=== PATIENT | female | born 1955 | race Caucasian/White ===

== ENCOUNTER 2023-03-25 08:34 | Outpatient (AMB) | payer MEDICARE, OTHER, SELFPAY ==
--- NOTE | 2023-03-25 09:23 | A.OFFVIS_ITS ---
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 States pain started a couple months ago. She states that her pain moves down her right leg. Pain is off and on, when she stepped out her car this morning she felt a sharp pain in her knee. Allergies meperidine [Demerol] Allergy (Unknown, Verified 03/25/23 09:27) Nausea From DEMEROL Allergy (Unknown, Uncoded 11/30/19 16:45) NAUSEA & VOMITING Medication List - Last Reconciled 03/25/23 by Camila Acosta MD ascorbate calcium (vitamin C) 500 mg PO BID aspirin 81 mg PO DAILY cholecalciferol (vitamin D3) 25 mcg PO DAILY ginkgo biloba 120 mg PO DAILY zmtme-ghdza-4-zbk-mhp-mbfspy 477-07-12-50 mg caps PO magnesium citrate,mag oxide mg PO melatonin 3 mg PO BEDTIME PRN methyltetrahydrofolate glucos mcg DFE PO HPI HPI Comments History of Present Illness Details Around June 2022, she moved/carried a 40 lb AC unit by herself. Had back pain mildy at first for a week. Didn't think it was a big deal at that time. Then had a scheduled hysterectomy end of June 2022. Few days after surgery, had short lived shooting pain to left leg, used salon pas, and that went away. After, continued intermittent back pain. She was also on tamoxifen for breast CA, started noting pain on legs and some weakness. Even other bones like elbows were hurting. Came off Tamoxifen, bones did feel better after. But still continued with lower back pain, now going down to right lateral hip/thigh, sharp pain on right lateral knee, sometimes down to foot. Worse with sitting, better when she moves. Worse when laying down, on either side. No bladder/bowel incontinence. No new numbness; tingling for years on feet, been seen by Neurologist. EMG 2 years ago normal. No weakness per se, although feels weak when there is pain. Before this incident, would get back pain rarely, no severe lumbar issues. Maybe some back strain incidents which resolved on their own. November 2021 had some lower back pain; saw PCP, thought due to weak core. Had PT for core exercises which helped. Has not seen a back specialist before. Treatment done so far: tylenol, salon pas, maricruz hot (lidocaine patch gave her headache) Current pain score only 1/10. Intermittent shooting to the right knee. [facility] Medical History (Updated 03/25/23 @ 10:44 by Camila Acosta MD) Spondylolisthesis, lumbar region Social History (Updated 03/25/23 @ 09:28 by Huang Heredia) Alcohol intake: never Patient Tobacco Use Status: Never used Tobacco Review of Systems Const All systems reviewed & are unremarkable except as noted in HPI and below Physical Exam Vital Signs: BMI result Body Mass Index 25.6 Constitutional: Patient appears to be in no acute distress, well nourished and well developed. Patient was appropriately conversant and oriented. Good historian. MSK: [No] specific abnormalities found on inspection of the spine and all extremities. [No pain with palpation over the lumbar area]. Lumbar ROM was [full]. [Bilateral hip, knee and ankle ROM WNL]. No ligamentous laxity or crepitance. [No increased effusion]. Straight-leg raising test [negative]. FABERE test [negative]. [Gillet test is negative]. [Khang test is negative]. [Piriformis test is negative]. [Scour test is negative]. Strength is [5/5 in all muscle groups tested]. [No increased tone noted]. Neurological: Neurologic examination of the upper and lower extremities was nonfocal with intact sensation, muscle stretch reflexes and without focal motor deficits [ ]. Yusuf?s [negative bilaterally]. Babinski was [down going bilaterally]. Clonus was [negative]. Gait is [non-]antalgic without loss of balance. Results Reviewed Results Reviewed: I independently reviewed the results of the following: Lumbar x-rays done today and office-showed 25% listhesis L4-5, disc space narrowing L4-5 and L5-S1 July 2022 bone density - osteopenia July [address] scan - grade 1 anterior listhesis L4-5 I reviewed records from the following: PCP Assessment & Plan Assessment & Plan (1) Spondylolisthesis, lumbar region: Code(s): M43.16 - Spondylolisthesis, lumbar region (2) Lumbar radiculitis: Code(s): M54.16 - Radiculopathy, lumbar region Plan We looked at lumbar x-ray images together, discussed presence of grade 1 25% spondylolisthesis at L4-5. This appears to be chronic and not new given that it was seen in an abdominal CT scan July 2021. However I do think she is having new right-sided radiculitis, L4-5 distribution. She is severely claustrophobic. Although she said she may try an open MRI if needed. Given she has very low level pain right now and no neurologic findings on exam, I think we can wait on an open MRI for now. Sending her back to x-rays to do flexion and extension views, make sure there is no instability. Again she says her pain is manageable and we can defer any oral prednisone or gabapentin. These medications were considered and we can start them if pain becomes more severe. Discussed red flags to watch out for. She can do exercises at home including walking and gentle chair core exercises. Advised against any extreme bending forward or backwards, and no squatting. Assessment and plan discussed with patient, and patient was agreeable. All questions were answered thoroughly. Follow-up 2 months. Call if there is any worsening of symptoms. Camila Acosta MD, MEGAN Board Certified, [place] Board [employer] Medicine and Rehabilitation (ABPMR) Board Certified, [place] Board [employer] Electrodiagnostic Medicine (ABEM) Coding Level of Care Code New Pt Level 4 (83344) Diagnoses Spondylolisthesis, lumbar region M43.16 Lumbar radiculitis M54.16
[2023-03-25 09:28] VITALS: BMI 25.6
== END 2023-03-25 10:03 | disposition home or self-care (01) ==
PROVIDERS: PCP Internal Medicine; Visit Provider Physical Medicine & Rehabilitation
DX: M43.16 Spondylolisthesis, lumbar region (principal); M54.16 Radiculopathy, lumbar region
CPT/HCPCS: 99204

== ENCOUNTER 2023-03-25 12:27 | Outpatient (REF) | payer MEDICARE, OTHER, SELFPAY ==
--- NOTE | ~2023-03-25 | XR_ITS ---
EXAMINATION: XR LUMBOSACRAL SPINE WITH OBLIQUES CLINICAL INFORMATION: Dorsalis the COMPARISON: CT of abdomen and pelvis from 08/02/2021 TECHNIQUE: 5 views of the lumbar spine, including lateral views during flexion and extension. FINDINGS: Mild dextrocurvature of the lumbar spine. The vertebral body heights are maintained. No compression fractures. At L3-L4, there is mild posterior disc space narrowing. At L4-L5, there is severe facet arthropathy, moderate loss of disc space and grade 2 anterolisthesis of L4 on L5. The anterolisthesis does not significant change on flexion or extension. At L5-S1, there is wydvosvm-hm-virasc facet arthropathy, severe loss of the disc height, endplate sclerosis and osteophytosis. Alignment is maintained at L5-S1. Mild hyperlordosis of the degenerated lumbar spine. There is abutment of spinous processes at L3-L4 and L4-L5. Sacrum and sacroiliac joints are unremarkable. XR/XR lumbar spine 6V w bending IMPRESSION: * No evidence of lumbar compression fracture. * Chronic facet osteoarthritis and disc degenerative change at L4-L5 and L5-S1. * Grade 2 anterolisthesis at L4-L5 does not significantly change on flexion or extension maneuvers.
== END 2023-03-25 12:28 | disposition home or self-care (01) ==
LOC: HO.HOSX 12:27
PROVIDERS: Visit Provider Physical Medicine & Rehabilitation
DX: M43.16 Spondylolisthesis, lumbar region (principal); M54.16 Radiculopathy, lumbar region
CPT/HCPCS: 72100; 72114

== ENCOUNTER 2023-05-27 08:54 | Outpatient (AMB) | payer MEDICARE, OTHER, SELFPAY ==
--- NOTE | 2023-05-27 08:58 | A.OFFVIS_ITS ---
Intake Vital Signs 05/27/23 09:00 Height 5 ft 2 in Weight 140 lb BMI 25.6 Intake Visit Reasons: OV - Lumbar radiculitis Intake Note: Marcela is a 67 year old female who presents today for a follow up/ MRI review of her Lumbar radiculitis. Patient reports she didn't having any pain until this morning. Currently is having pain today that is going down her left leg and sometimes it goes down her right leg. Allergies meperidine [Demerol] Allergy (Unknown, Verified 05/27/23 09:00) Nausea From DEMEROL Allergy (Unknown, Uncoded 11/30/19 16:45) NAUSEA & VOMITING Medication List - Last Reconciled 05/27/23 by Camila Acosta MD ascorbate calcium (vitamin C) 500 mg PO BID aspirin 81 mg PO DAILY cholecalciferol (vitamin D3) 25 mcg PO DAILY ginkgo biloba 120 mg PO DAILY cbssg-vesvr-8-ygv-yxu-jabnug 612-35-84-50 mg caps PO lorazepam 0.5 mg PO DAILY PRN magnesium citrate,mag oxide mg PO melatonin 3 mg PO BEDTIME PRN methyltetrahydrofolate glucos mcg DFE PO HPI HPI Comments History of Present Illness Details Around June 2022, she moved/carried a 40 lb AC unit by herself. Had back pain mildy at first for a week. Didn't think it was a big deal at that time. Then had a scheduled hysterectomy end of June 2022. Few days after surgery, had short lived shooting pain to left leg, used salon pas, and that went away. After, continued intermittent back pain. She was also on tamoxifen for breast CA, started noting pain on legs and some weakness. Even other bones like elbows were hurting. Came off Tamoxifen, bones did feel better after. But still continued with lower back pain, now going down to right lateral hip/thigh, sharp pain on right lateral knee, sometimes down to foot. Worse with sitting, better when she moves. Worse when laying down, on either side. No bladder/bowel incontinence. No new numbness; tingling for years on feet, been seen by Neurologist. EMG 2 years ago normal. No weakness per se, although feels weak when there is pain. Before this incident, would get back pain rarely, no severe lumbar issues. Maybe some back strain incidents which resolved on their own. November 2021 had some lower back pain; saw PCP, thought due to weak core. Had PT for core exercises which helped. Has not seen a back specialist before. Treatment done so far: tylenol, salon pas, maricruz araujo (lidocaine patch gave her headache) Current pain score only 1/10. Intermittent shooting to the right knee. On and off pain since I saw her. Noticed when she's in bed. Usually by afternoon, lower back hurts. Pain switches right or left. Applies maricruz hot. Last few days, been unusually painfree since she changed shoes/orthotics. But this morning, felt pain more and going to left knee, worse with walking. Now better with sitting. [facility] Medical History (Updated 05/27/23 @ 12:59 by Camila Acosta MD) Lumbar spinal stenosis Spondylolisthesis, lumbar region Social History (Updated 03/25/23 @ 09:28 by Huang Heredia) Alcohol intake: never Patient Tobacco Use Status: Never used Tobacco Physical Exam Vital Signs: BMI result Body Mass Index 25.6 Constitutional: Patient appears to be in no acute distress, well nourished and well developed. Patient was appropriately conversant and oriented. Good historian. MSK: No specific abnormalities found on inspection of the spine and all extremities. No pain with palpation over the lumbar area. Lumbar ROM was full. Bilateral hip, knee and ankle ROM WNL. No ligamentous laxity or crepitance. No increased effusion. Straight-leg raising test negative. FABERE test positive groin pain. Gillet test is negative. Strength is 5/5 in all muscle groups tested. No increased tone noted. Neurological: Neurologic examination of the upper and lower extremities was nonfocal with intact sensation, muscle stretch reflexes and without focal motor deficits . Yusuf?s negative bilaterally. Babinski was down going bilaterally. Clonus was negative. Gait is non-antalgic without loss of balance. Results Reviewed Results Reviewed: Reviewed images of open MRI done at [facility]. Moderate spinal stenosis L4-5 and foraminal stenosis at L4-5 and L5-S1. Mild spondylolisthesis L4-5. Assessment & Plan Assessment & Plan (1) Groin pain: Code(s): R10.30 - Lower abdominal pain, unspecified Qualifiers: Laterality: left Qualified Code(s): R10.32 - Left lower quadrant pain (2) Lumbar spinal stenosis: Code(s): M48.061 - Spinal stenosis, lumbar region without neurogenic claudication Qualifiers: Neurogenic claudication status: without neurogenic claudication Qualified Code(s): M48.061 - Spinal stenosis, lumbar region without neurogenic claudication (3) Lumbar radiculitis: Code(s): M54.16 - Radiculopathy, lumbar region (4) Spondylolisthesis, lumbar region: Code(s): M43.16 - Spondylolisthesis, lumbar region Plan Chronic back pain which we suspect is coming from lumbar spondylolisthesis, spinal stenosis. She is able to manage with pain. She does not show any neurologic deficits. We decided to refer to physical therapy. We discussed safe exercises to do at home and precautions against heavy lifting, precautions against extreme flexion and extension. We talked about appropriate diet at her age. Sending her for hip x-rays to rule out DJD due to complaints of groin pain. Per patient, reserving injections as last resort if not improved with PT or if pain becomes more persistent. Assessment and plan discussed with patient, and patient was agreeable. All questions were answered thoroughly. Camila Acosta MD, MEGAN Board Certified, [place] Board of [employer] Medicine and Rehabilitation (ABPMR) Board Certified, [place] Board [employer] Electrodiagnostic Medicine (ABEM) Orders: Orders XR hips FARHANA min 3V Today R10.30 - Lower abdominal pain, unspecified PT Evaluation and Treatment Today M43.16 - Spondylolisthesis, lumbar region, M48.061 - Spinal stenosis, lumbar region without neurogenic claudication, M54.16 - Radiculopathy, lumbar region, R10.30 - Lower abdominal pain, unspecified Coding Level of Care Code Est Pt Level 4 (72759) Diagnoses Left inguinal pain R10.32 Laterality: left Spinal stenosis of lumbar region without neurogenic claudication M48.061 Neurogenic claudication status: without neurogenic claudication Lumbar radiculitis M54.16 Spondylolisthesis, lumbar region M43.16
[2023-05-27 09:00] VITALS: BMI 25.6
== END 2023-05-27 09:29 | disposition home or self-care (01) ==
PROVIDERS: PCP Internal Medicine; Visit Provider Physical Medicine & Rehabilitation
DX: R10.32 Left lower quadrant pain (principal); M48.061 Spinal stenosis, lumbar region without neurogenic claudication; M54.16 Radiculopathy, lumbar region; M43.16 Spondylolisthesis, lumbar region
CPT/HCPCS: 99214

== ENCOUNTER 2023-05-27 08:54 | Outpatient (REF) | payer MEDICARE, OTHER, SELFPAY ==
--- NOTE | ~2023-05-27 | XR_ITS ---
EXAMINATION: XR BILATERAL HIPS WITH AP PELVIS CLINICAL INFORMATION: Pain COMPARISON: None available. TECHNIQUE: 2 views of each hip FINDINGS: No acute visible fracture or dislocation. Degenerative arthropathy of the bilateral femoral acetabular joint. Degenerative changes of the lumbosacral spine. Joint space alignment otherwise maintained. Soft tissues unremarkable. Bowel gas is unremarkable. Pelvic phleboliths are noted. Soft tissues are unremarkable. XR/XR hips FARHANA min 3V IMPRESSION: 1. No acute visible fracture or dislocation. 2. Degenerative arthropathy of the bilateral femoral acetabular joint.
== END 2023-05-27 08:55 | disposition home or self-care (01) ==
LOC: HO.HOSX 08:54
PROVIDERS: PCP Internal Medicine; Visit Provider Physical Medicine & Rehabilitation
DX: R10.32 Left lower quadrant pain (principal); M54.16 Radiculopathy, lumbar region; M48.061 Spinal stenosis, lumbar region without neurogenic claudication; M43.16 Spondylolisthesis, lumbar region
CPT/HCPCS: 73522; 99212

== ENCOUNTER 2024-03-02 09:12 | Outpatient (REF) | payer MEDICARE, OTHER, SELFPAY ==
--- OUTSIDE RECORDS SUMMARY | 2024-03-02 09:45 | XMS_ITS ---
Author Organization [facility] Address [address] [facility] [place] [address] Care Team Providers Care Elastic Assembler Name Role Phone Sergey Garrett [phone] ALLERGIES, ADVERSE REACTIONS, ALERTS Substance Code Code System Type Reaction Severity Status Start Date End Date house dust 036668 RxNorm Other allergy () 0 mold 648768 RxNorm Other allergy () 0 MEDICATIONS Medication Code Code System Start Date Stop Date Route Dosage Directions Fill Instructions famotidine RxNorm 10/08/2023 1 lorazepam RxNorm 12/08/2023 doxycycline hyclate RxNorm 12/13/2023 1 loratadine RxNorm 12/15/2023 1 neomycin/polymy nikolay B sulfate/dexamet hasone RxNorm 12/13/2023 1 PROBLEMS Problem Name Code Code System Start Date End Date Stat us Heartburn 16131839 [facility] Active Sleep disorder, unspecified 15209812 [facility] Active Tinnitus, unspecified ear 51212693 [facility] 01/09/2024 Active ENCOUNTERS Encounter Diagnosis Code Code System Date Stat us Tinnitus, unspecified ear 28519335 [facility] 01/09/2024 Active IMMUNIZATIONS * None VITAL SIGNS Code Code System Vitals Name Date Value and Un its 8462-4 [facility] Blood Pressure-Diastolic 01/09/2024 84 mmHg 8480-6 [facility] Blood Pressure-Systolic 01/09/2024 1 57 mmHg 8867-4 [facility] Heart Rate 01/09/2024 67 /min 9279-1 [facility] Respiratory Rate 01/09/2024 18 /min 8310-5 [facility] Body Temperature 01/09/2024 98.3 F 21265-2 [facility] Oxygen Saturation 01/09/2024 98 % SOCIAL [...]
== END 2024-03-02 09:13 | disposition home or self-care (01) ==
LOC: HO.HOSX 09:12
PROVIDERS: PCP Internal Medicine; Visit Provider Physical Medicine & Rehabilitation
DX: M54.2 Cervicalgia (principal); M79.18 Myalgia, other site; M47.812 Spondylosis without myelopathy or radiculopathy, cervical region
CPT/HCPCS: 72040; 99212

== ENCOUNTER 2024-03-02 09:12 | Outpatient (AMB) | payer MEDICARE, OTHER, SELFPAY ==
[2024-03-02 09:17] VITALS: BMI 25.6
--- NOTE | 2024-03-02 09:17 | MHC.OFFVIS ---
Vital Signs 03/02/24 09:17 Height 5 ft 2 in Weight 140 lb BMI 25.6 Intake Visit Reasons: new prob - neck pain down to between shoulders Intake Note: Marcela 68 yr old female presents today for a new problem visit for her neck pain. States her pain radiates down in between her shoulders at times. Pain started in December. No injury she can recall. Today her pain is better and feels like this could be muscular tension. States her neck cracks when she turns her neck to either side. Denies neck therapy or injections. She is also having lower back pain on and off. Hx of TMJ issues. Allergies meperidine [Demerol] Allergy (Unknown, Verified 03/02/24 09:25) Nausea From DEMEROL Allergy (Unknown, Uncoded 03/02/24 09:25) NAUSEA & VOMITING Medication List - Last Reconciled 03/02/24 by Camila Acosta MD ascorbate calcium (vitamin C) 500 mg PO BID aspirin 81 mg PO DAILY cholecalciferol (vitamin D3) 25 mcg PO DAILY ginkgo biloba 120 mg PO DAILY vcets-wsqjo-1-xel-pep-duthci 579-13-44-50 mg caps PO lorazepam 0.5 mg PO DAILY PRN magnesium citrate,mag oxide mg PO melatonin 3 mg PO BEDTIME PRN methyltetrahydrofolate glucos mcg DFE PO HPI Comments Details: Previously seen 05/27/2023 for back and hip pain. Patient says this improved with physical therapy. She is here today for different issue. Lateral neck pain, left worse than right, started November. Tends to tense in the trapezius. Tends to clench/bit down, following with dentist. Developed tinnitus also, saw ENT Dr. Bang. Thought maybe related to TMJ and BPPV. She was referred to PT for vertigo. Saw Dr. Chamberlain 02/21/2024. He ordered EMG lower extremities. She had gone to ER 01/16/24 for rapid HR. Ruled out cardiac. Chest xray showed incidentally cervical facet degeneration. She also mentions that symptoms may have started after a covid vaccine in November. That day her face and arm felt numb, but resolved the next day. For neck pain, she notes clicking with ROM. She admits that she's been stressed this year. Neck pain gets better if she relaxes. [facility] Medical History (Updated 03/02/24 @ 09:42 by Camila Acosta MD) Lumbar spinal stenosis Spondylolisthesis, lumbar region Social History (Updated 03/02/24 @ 09:25 by Rabia Devi [facility]) Alcohol intake: never Patient Tobacco Use Status: Never used Tobacco Current occupational status: retired Current occupation: right hand Physical Exam Vital Signs: BMI result Body Mass Index 25.6 Constitutional: Patient appears to be in no acute distress, well nourished and well developed. Patient was appropriately conversant and oriented. Good historian. MSK: Inspection reveals appropriate head and neck positioning. Tender on upper trapezius. Cervical ROM was full. Spurling's sign negative. Bilateral shoulder, elbow and wrist ROM WNL. No ligamentous laxity or crepitance. No increased effusion. Strength is 5/5 in all muscle groups tested. No increased tone noted. Neurological: Neurologic examination of the upper and lower extremities was nonfocal with intact sensation, muscle stretch reflexes and without focal motor deficits . Yusuf?s negative bilaterally. Gait is non-antalgic without loss of balance. Patient was able to perform heel walk and toe walk. Results Reviewed Results Reviewed: Reviewed notes from Dr. Chamberlain and a chest x-ray. Assessment & Plan Assessment & Plan (1) Myofascial pain: Code(s): M79.18 - Myalgia, other site Category: Medical (2) Cervical spondylosis: Code(s): M47.812 - Spondylosis without myelopathy or radiculopathy, cervical region Category: Medical Plan Suspect that neck pain is primarily myofascial. We do think she has cervical spondylosis, but no specific sign of radiculopathy or myelopathy. We agreed on sending her to physical therapy for neck pain and myofascial pain. She will do this after she finishes physical therapy for vestibular. We are doing a cervical x-ray for completion, to see baseline level of spondylosis. Encouraged to do home exercises for lower back pain. Assessment and plan discussed with patient, and patient was agreeable. All questions were answered thoroughly. Follow up 6 weeks. Camila Acosta MD, MEGAN Board Certified, [place] Board [employer] Medicine and Rehabilitation (ABPMR) Board Certified, [place] Board [employer] Electrodiagnostic Medicine (ABEM) Orders: Orders PT Evaluation and Treatment Today M47.812 - Spondylosis without myelopathy or radiculopathy, cervical region, M79.18 - Myalgia, other site XR cervical spine 3V Today M54.2 - Cervicalgia Coding Level of Care Code Est Pt Level 4 (38883) Diagnoses Myofascial pain M79.18 Cervical spondylosis M47.812
--- OUTSIDE RECORDS SUMMARY | 2024-03-02 09:19 | XMS_ITS ---
Author Organization [facility] Address [address] [place] [address] Care Team Providers Care Warranty Clerk Name Role Phone Sergey Garrett [phone] ALLERGIES, ADVERSE REACTIONS, ALERTS Substance Code Code System Type Reaction Severity Status Start Date End Date house dust 307303 RxNorm Other allergy () 0 mold 461976 RxNorm Other allergy () 0 MEDICATIONS Medication Code Code System Start Date Stop Date Route Dosage Directions Fill Instructions famotidine RxNorm 10/08/2023 1 lorazepam RxNorm 12/08/2023 doxycycline hyclate RxNorm 12/13/2023 1 loratadine RxNorm 12/15/2023 1 neomycin/polymy nikolay B sulfate/dexamet hasone RxNorm 12/13/2023 1 PROBLEMS Problem Name Code Code System Start Date End Date Stat us Heartburn 26139514 [facility] Active Sleep disorder, unspecified 81131749 [facility] Active Tinnitus, unspecified ear 61217289 [facility] 01/09/2024 Active ENCOUNTERS Encounter Diagnosis Code Code System Date Stat us Tinnitus, unspecified ear 98846409 [facility] 01/09/2024 Active IMMUNIZATIONS * None VITAL SIGNS Code Code System Vitals Name Date Value and Un its 8462-4 [facility] Blood Pressure-Diastolic 01/09/2024 84 mmHg 8480-6 [facility] Blood Pressure-Systolic 01/09/2024 1 57 mmHg 8867-4 [facility] Heart Rate 01/09/2024 67 /min 9279-1 [facility] Respiratory Rate 01/09/2024 18 /min 8310-5 [facility] Body Temperature 01/09/2024 98.3 F 35513-9 [facility] Oxygen Saturation 01/09/2024 98 % SOCIAL HISTORY * None PROCEDURES * None MEDICAL EQUIPMENT * Patient has no history of implantable devices ASSESSMENT Assessment Please follow-up with ENT on January 23 as scheduled.Take Tylenol as needed.If symptoms worsen or you develop a fever please be reevaluated immediately TREATMENT PLAN Type Description Date APPOINTMENT If not feeling donny r in 3 day(s), please see your primary care physician. If you do not have a primary care physician, please return to this clinic. 01/09/2024 Lab Tests None GOALS * None HEALTH CONCERNS * No Health Concerns FUNCTIONAL AND COGNITIVE STATUS * None CONSULTATION NOTES * None DISCHARGE SUMMARY NOTES * None HISTORY AND PHYSICAL NOTES * None IMAGING NOTES * None LABORATORY REPORT NARRATIVE NOTES * None PATHOLOGY REPORT NARRATIVE NOTES * None PROGRESS NOTES * None
== END 2024-03-02 10:13 | disposition home or self-care (01) ==
PROVIDERS: PCP Internal Medicine; Visit Provider Physical Medicine & Rehabilitation
DX: M79.18 Myalgia, other site (principal); M47.812 Spondylosis without myelopathy or radiculopathy, cervical region
CPT/HCPCS: 99213

== ENCOUNTER → 2024-03-02 09:49 | Outpatient (BNV) | payer MEDICARE, OTHER, SELFPAY | PROVIDERS: PCP Internal Medicine; Visit Provider Radiology Diagnostic Radiology | DX: M46.92 Unspecified inflammatory spondylopathy, cervical region (principal); M54.2 Cervicalgia | CPT/HCPCS: 72040 ==

== ENCOUNTER 2024-03-27 09:00 | Outpatient (RCR) | payer MEDICARE, OTHER, SELFPAY ==
[2024-03-20 09:07] VITALS: BP 161/72; PULSE 60
--- NOTE | 2024-03-21 13:51 | MHC.PT.EP ---
[facility] [place] Office [place] Office [place] [facility] [address] Magdy Jamison [address] [phone] F: [phone] F: [phone] F: [phone] F: [phone] Physical Therapy Plan of Care Date of Evaluation: 03/20/24 Date of Surgery: Diagnosis: Vestibualr rehab Vertigo Assessment: Pt is a pleasant 68yo F who presents to PT with dizziness. She describes her symptoms as feeling off kilter since November. She presents to PT with current impairments in dizziness, and decreased balance/proprioception. She is limited functionally by nodding her head, looking around at the grocery store, and looking down. Upon assessment, she tested negative in B Andrade Hallpike and B roll test for positional vertigo. Her signs and symptoms may be consistent with vestibular hypofunction. She is a good candidate for skilled PT in order to address current impairments to facilitate return to PLOF. She is recommended to be seen 2x/week for 4 weeks and will be reassessed Frequency and Duration: The patient will be seen 2x/week for 4 weeks Short Term Goals: Pt will be I with HEP to promote self management of symptoms Pt will improve balance with eyes closed on airex to 30 sec with minimal postural sway Director Of Architecture Goals: Pt will demonstrate ability to look up/down without dizziness or instability Pt will grocery shop while scanning the shelves without dizziness or instability Treatment Plan: Modalities to reduce pain, spasms and effusion. Manual therapy to restore motion and function. Therapeutic exercise to improve strength and flexibility. Neuromuscular re-education for posture and balance. Therapeutic activities to return to functional activities of daily living. Electronically signed by: Kristin Brown, PT, DPT Please sign and return to therapist. Thank you for your referral.
--- NOTE | 2024-05-04 13:38 | MHC.PT.DC ---
[facility] [place] Office [place] Office [place] Office [address] Magdy Jamison [address] [phone] F: [phone] F: [phone] F: [phone] F: [phone] Physical Therapy Discharge Report Diagnosis: Vestibualr rehab Vertigo Date of Surgery: Date of Evaluation: 03/20/24 Date of Discharge: 03/27/24 Treatments to Date: 3 Cancellations to Date: 0 No Shows to Date: 0 Discharge Status: Independent with HEP Recommend MD Follow-up Discharge Summary: Pt had no increase in sx with gait with head turns, VOR, balance with eyes closed or cervical exercises. She moves her head freely/ liberally when talking and moving around gym and this does not increase sx either. Her 'off-kilter' sensation remained 3/10 and intermittent nausea at time with no change with exercises. She had (-) VBI test. Re-tested for BPPV and she was negative for nystagmus and sx all 6 canals. At this time, recommend f/u with MD regarding sx as we have r/o BPPV. She has neurology appointment today. She will continue with I HEP of balance and VOR exercises at this time. Pt in agreement with plan to d/c and f/u with MD. Electronically signed by: Mendy Seay PT Please sign and return to therapist. Thank you for your referral.
== END 2024-05-04 13:38 | disposition home or self-care (01) ==
LOC: HO.PTCHIC 09:00
PROVIDERS: PCP Internal Medicine; Visit Provider Otolaryngology
DX: H81.13 Benign paroxysmal vertigo, bilateral (principal); H81.4 Vertigo of central origin
CPT/HCPCS: 95992; 97112; 97162

== ENCOUNTER → 2024-04-13 10:53 | Outpatient (BNVA) | payer MEDICARE, OTHER, SELFPAY | PROVIDERS: PCP Internal Medicine; Visit Provider Physical Medicine & Rehabilitation | DX: M79.18 Myalgia, other site (principal); M47.812 Spondylosis without myelopathy or radiculopathy, cervical region; R42 Dizziness and giddiness | CPT/HCPCS: 99212 ==

== ENCOUNTER 2024-09-08 08:40 | Outpatient (AMB) | payer MEDICARE, OTHER, SELFPAY ==
[2024-09-08 08:45] VITALS: BMI 25.6
--- NOTE | 2024-09-08 08:45 | A.OFFVIS_ITS ---
Vital Signs 09/08/24 08:45 Height 5 ft 2 in Weight 140 lb BMI 25.6 Intake Visit Reasons: OV-Cervical Facet Arthritis & Myofascial Tightness Intake Note: Marcela is a 69 year old female who presents today as a follow up Neck pain between her shoulders. At last visit she was told to continue physical therapy and at home exercises. Patient was discharged from physical therapy on 05/04/24. Patient states that her dizzy spells have gone away since finishing physicial therapy. She reports that her neck and shoulder pain has improved greatly since last visit and with the help physical therapy. Patient voiced her concern for the tremor in her neck that has been going on for two years now, seen for the issue. Allergies meperidine (Demerol) Allergy (Unknown, Verified 09/08/24 08:51) Nausea From DEMEROL Allergy (Unknown, Uncoded 09/08/24 08:51) NAUSEA & VOMITING Medication List - Last Reconciled 09/08/24 by Camila Acosta MD ascorbate calcium (vitamin C) 500 mg PO BID aspirin 81 mg PO DAILY cholecalciferol (vitamin D3) 25 mcg PO DAILY famotidine 20 mg PO BID ginkgo biloba 120 mg PO DAILY [id number] mg caps PO lorazepam 0.5 mg PO DAILY PRN magnesium citrate,mag oxide mg PO melatonin 3 mg PO BEDTIME PRN methyltetrahydrofolate glucos mcg DFE PO HPI Comments Details: Since last seen, overall better. Dizziness is gone. PT helped it a lot, finished in Apr. Still doing home exercises. She demonstrates the head and hand tremors. It happens when nervous. Depends on activity. Has seen Dr. Chamberlain, most likely essential tremor. [facility] Medical History (Updated 04/13/24 @ 14:05 by Camila Acosta MD) Lumbar spinal stenosis Spondylolisthesis, lumbar region Social History Alcohol intake: never Patient Tobacco Use Status: Never used Tobacco Current occupational status: retired Current occupation: right hand Physical Exam Vital Signs: BMI result Body Mass Index 25.6 Constitutional: Patient appears to be in no acute distress, well nourished and well developed. Patient was appropriately conversant and oriented. Good historian. Neurological: Nonfocal. No tremors. Negative pronator sign. Upper extremity and lower extremity strength 5/5. Reflexes upper and lower extremities brisk and symmetric. Gait is non-antalgic without loss of balance. Results Reviewed Results Reviewed: Ordering Physician: Camila Abreu Date of Service: 03/02/24 Procedure(s): XR cervical spine 3V Accession Number(s): [id number] cc: CAITY LOVE MD; Camila Abreu~ EXAMINATION: XR CERVICAL SPINE 2-3 VIEWS HISTORY: M54.2 - Cervicalgia COMPARISON: There are no prior studies for comparison. FINDINGS: AP, lateral, and open-mouth odontoid views of the cervical spine are submitted. Osseous mineralization is normal. Seven cervical vertebral bodies are identified maintaining normal height and alignment without evidence of fracture or subluxation. The intervertebral disc spaces are preserved. There is diffuse moderate osteoarthritis of the facet joints. The odontoid and lateral masses of C1 are intact. There is no prevertebral soft tissue swelling. XR/XR cervical spine 3V IMPRESSION: Moderate osteoarthritis of the facet joints. Electronically signed by: Ahmet Jansen MD 04/12/2024 02:46 PM EST Assessment & Plan Assessment & Plan (1) Cervical facet syndrome: Code(s): M47.812 - Spondylosis without myelopathy or radiculopathy, cervical region Category: Medical (2) Cervicogenic dizziness: Code(s): R42 - Dizziness and giddiness Category: Medical Plan Dizziness resolved. Denies any neck pain. No signs of radiculopathy or myelopathy on exam. There is no indication at this time to get cervical MRI but if she is curious, we could. We necessarily would not need to do any interventions since she has no pain or signs of radiculopathy at all. Note though that she will need Ativan prior to any MRI due to claustrophobia. She had seen Dr. Chamberlain in the past for essential tremors. She had seen ENT for the tinnitus. Assessment and plan discussed with patient, and patient was agreeable. All questions were answered thoroughly. Follow up 6 months, sooner if needed. Camila Acosta MD, MEGAN Board Certified, [place] Board of Physical Medicine and Rehabilitation (ABPMR) Board Certified, [place] Board of Electrodiagnostic Medicine (ABEM) Coding Level of Care Code Est Pt Level 3 (28949) Diagnoses Cervical facet syndrome M47.812 Cervicogenic dizziness R42
--- OUTSIDE RECORDS SUMMARY | 2024-09-08 08:53 | XMS_ITS | Clinical Summary ---
Author Organization [facility] Address [address] [place] [id number] Phone Care Team Providers Care Field Support Technician Name Role Phone Ayan Tse MD Primary Care Provider [phone] Allergies No known active allergies Medications No known medications Medical History Medical History Date Comments Tinnitus Social History Tobacco Use Types Packs/Day Years Used Date Smoking Tobacco: Never Smokeless Tobacco: Never Tobacco Cessation:Counseling Given: Not Answered Alcohol Use Standard Drinks/Week Comments Never 0 (1 standard drink = 0.6 oz pur e alcohol) Comments Unknown Sex and Gender Information Value Date Recorded Sex Assigned at Female 05/14/2024 10:04 AM EST Legal Sex Female 3:42 PM EDT Gender Identity Female 05/14/2024 10:04 AM EST Sexual Orientation Straight 05/14/2024 10 :04 AM EST Obstetrics History Last Filed Vital Signs Vital Sign Reading Time Taken Comments Blood Pressure 151/64 05/14/2024 7:42 AM EST Pulse 66 05/14/2024 7:42 AM EST Temperature 36.8 C (98.2 F) 05/14/2024 7:42 AM EST Respiratory Rate 18 05/14/2024 7:42 AM EST Oxygen Saturation 98% 05/14/2024 8:44 AM EST Inhaled Oxygen Concentration - - Weight 62.6 kg (138 lb) 05/14/2024 7:42 AM EST Height 157.5 cm (5' 2 ) 05/14/2024 7:42 AM EST Body Mass Index 25.24 05/14/2024 7:42 AM EST Plan of Treatment Health Maintenance Due Date Last Done Comments Breast Cancer Screening 1955 DTaP,Tdap,and Td Vaccines (1 - Tdap) 1972 Pneumococcal Vaccine: 50+ Years (1 of 2 - PCV) 1972 Zoster Vaccines (2 of 2) 01/05/2018 11/10/2017 Cholesterol Screening (Lipid Panel) 01/09/2024 Colorectal Cancer Screening: Colonoscopy 01/09/2024 Depression Screening 01/09/2024 Hepatitis C Screening 01/09/2024 Medicare Annual Wellness Visit 01/09/2024 Osteoporosis Screening (Bone Density Screening) 01/09/2024 Social Influencers of Health Screening 01/09/2024 COVID-19 Vaccine (9 - Pfizer risk 2023- season) 2024 11/18/2023, 01/30/2023, 09/03/2022, Additional history exists Falls Risk Assessment 01/15/2025 01/16/2024 Hypertension/CHF/CAD Annual BMP Blood Test 05/14/2025 05/14/2024, 01/16/2024 RSV Immunization Adult Patients (1 - 1-dose 75+ series) 2028 Influenza Vaccine Completed 11/18/2023, , 11/21/2021, Additional history exists HIB Vaccines Aged Out No longer eligi ble based on patient's age to complete this topic HPV Vaccines Aged Out No longer eligi ble based on patient's age to complete this topic Hepatitis A Vaccines Aged Out No long er eligible based on patient's age to complete this topic Hepatitis B Vaccines Aged Out No long er eligible based on patient's age to complete this topic IPV Vaccines Aged Out No longer eligi ble based on patient's age to complete this topic MMR Vaccines Aged Out No longer eligi ble based on patient's age to complete this topic Meningococcal ACWY Vaccine Aged Out N o longer eligible based on patient's age to complete this topic Meningococcal B Vaccine Aged Out No l onger eligible based on patient's age to complete this topic RSV Immunization Patients Under 20 months Aged Out No longer eligible based on patient's age to complete this topic Varicella Vaccines Aged Out No longer eligible based on patient's age to complete this topic Procedures Procedure Name Priority Date/Time Associated Diagnosis Comments COMPREHENSIVE METABOLIC PANEL STAT 05/14/2024 7:45 AM EST from Last 3 Months or Most Recently Relevant to Health Maintenance Results * Comprehensive metabolic panel (05/14/2024 7:45 AM EST) Sodium 136 133 - 145 mmol/L LAB CHEMISTRY METHOD 05/14/2024 8:18 AM [facility] Potassium 3.7 3.5 - 5.5 mmol/L LAB CHEMISTRY METHOD 05/14/2024 8:18 AM [facility] Chloride 102 96 - 110 mmol/L LAB CHEMISTRY METHOD 05/14/2024 8:18 AM [facility] CO2 28 21 - 32 mmol/L LAB CHEMISTRY METHOD 05/14/2024 8:18 AM [facility] Anion Gap 6 3 - 11 LAB CHEMISTRY METHOD 05/14/2024 8:18 AM [facility] Glucose 88 70 - 100 mg/dL LAB CHEMISTRY METHOD 05/14/2024 8:18 AM [facility] BUN 17 5 - 25 mg/dL LAB CHEMISTRY METHOD 05/14/2024 8:18 AM [facility] Creatinine 0.55 0.50 - 1.10 mg/dL LAB CHEMISTRY METHOD 05/14/2024 8:18 AM [facility] eGFR 99 >=60 mL/min/1. 73m2 LAB CHEMISTRY METHOD 05/14/2024 8:18 AM [facility] Comment:Calculation based on the Chronic Kidney Disease Epidemiology Collaboration (CKD-EPI) equation refit without adjustment for race. BUN/Creatinine Ratio 30.9 LAB CHEMISTRY METHOD 05/14/2024 8:18 AM [facility] Calcium 9.4 8.5 - 10.5 mg/dL LAB CHEMISTRY METHOD 05/14/2024 8:18 AM [facility] AST (SGOT) 39 10 - 42 unit/L LAB CHEMISTRY METHOD 05/14/2024 8:18 AM [facility] ALT (SGPT) 45 10 - 60 unit/L LAB CHEMISTRY METHOD 05/14/2024 8:18 AM EST [facility] Alkaline Phosphatase 106 42 - 121 unit/L LAB CHEMISTRY METHOD 05/14/2024 8:18 AM EST [facility] Total Protein 7.2 6.0 - 8.0 g/dL LAB CHEMISTRY METHOD 05/14/2024 8:18 AM EST [facility] Albumin 3.6 3.2 - 5.0 g/dL LAB CHEMISTRY METHOD 05/14/2024 8:18 AM EST [facility] Total Bilirubin 0.3 0.0 - 1.4 mg/dL LAB CHEMISTRY METHOD 05/14/2024 8:18 AM [facility] Blood Venous blood specimen / Unknown Venipuncture / Unknown 05/14/2024 7:45 AM EST 05/14/2024 7:55 AM EST us Brian Sparrow DO LAB BLOOD ORDERABLES Final Result [facility] [address] [place] [address], from Last 3 Months or Most Recently Relevant to Health [place] [id number] [facility] Care Teams Field Support Technician Relationship Specialty Start Date End Date Ayan Tse MD 1 [facility] [place] PCP - General Internal Medicine 01/16/24
== END 2024-09-08 09:24 | disposition home or self-care (01) ==
LOC: HO.HOS 08:40
PROVIDERS: PCP Internal Medicine; Visit Provider Physical Medicine & Rehabilitation
DX: M47.812 Spondylosis without myelopathy or radiculopathy, cervical region (principal); R42 Dizziness and giddiness
CPT/HCPCS: 99213

== ENCOUNTER → 2024-09-08 08:40 | Outpatient (BNVA) | payer MEDICARE, OTHER, SELFPAY | PROVIDERS: PCP Internal Medicine; Visit Provider Physical Medicine & Rehabilitation | DX: M47.812 Spondylosis without myelopathy or radiculopathy, cervical region (principal); R42 Dizziness and giddiness | CPT/HCPCS: 99212 ==

== ENCOUNTER 2025-03-01 08:35 | Outpatient (AMB) | payer MEDICARE, OTHER, SELFPAY ==
--- NOTE | 2025-03-01 08:44 | A.OFFVIS_ITS ---
Vital Signs 03/01/25 08:48 Height 5 ft 2 in Weight 140 lb BMI 25.6 Intake Visit Reasons: OV-Cervical Facet Arthritis & Myofascial Tightness Intake Note: Marcela is a 69 year old female who presents today as a follow up for her cervical facet arthritis & myofascial tightness. At today's visit she states that the neck pain is now manageable. She states that physical therapy has really improved and when the tightness occurs she uses a heating pad with relief. Allergies meperidine (Demerol) Allergy (Unknown, Verified 09/08/24 08:51) Nausea From DEMEROL Allergy (Unknown, Uncoded 09/08/24 08:51) NAUSEA & VOMITING Medication List - Last Reconciled 03/01/25 by Camila Acosta MD ascorbate calcium (vitamin C) 500 mg PO BID aspirin 81 mg PO DAILY cholecalciferol (vitamin D3) 25 mcg PO DAILY famotidine 20 mg PO BID ginkgo biloba 120 mg PO DAILY ifugw-iojlt-[id number]-rpi-vch-ymjfjr [id number] mg caps PO lorazepam 0.5 mg PO DAILY PRN magnesium citrate,mag oxide mg PO melatonin 3 mg PO BEDTIME PRN methyltetrahydrofolate glucos mcg DFE PO HPI Comments Details: Dizziness and neck pain gone. Once in a while, she'd feel something but it would improve with exercise. She does her exercises faitfully and uses heating pad. No numbness on feet and arms. Few months she did have to change her pillow to help with neck pain. She did have one fall in December, while mowing, went backwards and hit her head on the ground, didn't have pain after, no headache, didn't see anyone after. [facility] Medical History (Updated 04/13/24 @ 14:05 by Camila Acosta MD) Lumbar spinal stenosis Spondylolisthesis, lumbar region Social History Alcohol intake: never Patient Tobacco Use Status: Never used Tobacco Current occupational status: retired Current occupation: right hand Physical Exam Exam Exam: Constitutional: Patient appears to be in no acute distress, well nourished and well developed. Patient was appropriately conversant and oriented. Good historian. Neurological: Mood appears normal, good affect, and appropriate for the circumstances. Neurologic examination of the upper and lower extremities was nonfocal with intact sensation, muscle stretch reflexes and without focal motor deficits. Yusuf?s negative bilaterally. Negative pronator drift. Babinski was down going bilaterally. Clonus was negative. Gait is non-antalgic without loss of balance. Negative Spurling sign. Vital Signs: BMI result Body Mass Index 25.6 Results Reviewed Results Reviewed: Ordering Physician: Camila Abreu Date of Service: 03/02/24 Procedure(s): XR cervical spine 3V Accession Number(s): [id number] cc: CAITY LOVE MD; Camila Abreu~ EXAMINATION: XR CERVICAL SPINE 2-3 VIEWS HISTORY: M54.2 - Cervicalgia COMPARISON: There are no prior studies for comparison. FINDINGS: AP, lateral, and open-mouth odontoid views of the cervical spine are submitted. Osseous mineralization is normal. Seven cervical vertebral bodies are identified maintaining normal height and alignment without evidence of fracture or subluxation. The intervertebral disc spaces are preserved. There is diffuse moderate osteoarthritis of the facet joints. The odontoid and lateral masses of C1 are intact. There is no prevertebral soft tissue swelling. XR/XR cervical spine 3V IMPRESSION: Moderate osteoarthritis of the facet joints. Electronically signed by: Ahmet Jansen MD 04/12/2024 02:46 PM EST Assessment & Plan Assessment & Plan (1) Cervical facet syndrome: Code(s): M47.812 - Spondylosis without myelopathy or radiculopathy, cervical region Category: Medical (2) Cervicogenic dizziness: Code(s): R42 - Dizziness and giddiness Category: Medical Plan Overall doing well, denies any further dizziness or neck pain. Neurologic exam normal. We will continue to watch. Continue exercises. Assessment and plan discussed with patient, and patient was agreeable. All questions were answered thoroughly. Follow up as needed. Camila Acosta MD, MEGAN Board Certified, [place] Board of Physical Medicine and Rehabilitation (ABPMR) Board Certified, [place] Board of Electrodiagnostic Medicine (ABEM) Coding Level of Care Code Est Pt Level 3 (90743) Diagnoses Cervical facet syndrome M47.812 Cervicogenic dizziness R42
[2025-03-01 08:48] VITALS: BMI 25.6
--- OUTSIDE RECORDS SUMMARY | 2025-03-01 09:01 | XMS_ITS | Clinical Summary ---
Author Organization [facility] Address [address] [place] [address] Phone Care Team Providers Care Licensed Home Inspector Name Role Phone Ayan Tse MD Primary Care Provider Allergies No known active allergies Medications hydrOXYzine HCL (ATARAX) 25 mg tablet Take 1 tablet (25 mg total) by mouth every 8 (eight) hours if needed for anxiety. 60 tablet 01/02/2025 Active Encounters Date Type Department Care Team Description 01/02/2025 12:45 PM EDT - 01/02/2025 1:05 PM EDT Emergency [facility] Emergency [address] [place] [address] Mica Sandy MD Chest pain, unspecified type (Primary Dx); Anxiety Discharge Disposition: Home or Self Care from Last 3 Months Medical History Medical History Date Comments Tinnitus [...] Orientation Straight 05/14/2024 10 :04 AM EST Last Filed Vital Signs Vital Sign Reading Time Taken Comments Blood Pressure 135/68 01/02/2025 11:23 AM EDT Pulse 64 01/02/2025 11:23 AM EDT Temperature 37.2 C (98.9 F) 01/02/2025 11:23 AM EDT Respiratory Rate 15 01/02/2025 11:23 AM EDT Oxygen Saturation 98% 01/02/2025 11:23 AM EDT Inhaled Oxygen Concentration - - Weight 62.6 kg (138 lb) 01/02/2025 11:23 AM EDT Height 157.5 cm (5' 2 ) 01/02/2025 11:23 AM EDT Body Mass Index 25.24 01/02/2025 11:23 AM EDT Plan of Treatment Health Maintenance Due Date Last Done Comments Breast Cancer Screening 1955 Colorectal Cancer Screening: Colonoscopy 1955 DTaP,Tdap,and Td Vaccines (1 - Tdap) 1972 Pneumococcal Vaccine: 50+ Years (1 of 2 - PCV) 1972 Zoster Vaccines (2 of 2) 01/05/2018 11/10/2017 Falls Risk Assessment 01/09/2024 Hepatitis C Screening 01/09/2024 Medicare Annual Wellness Visit 01/09/2024 Osteoporosis Screening (Bone Density Screening) 01/09/2024 Social Influencers of Health Screening 01/09/2024 Depression Screening 03/15/2024 COVID-19 Vaccine (10 - Pfizer risk 2024- season) 2025 12/07/2024, 11/18/2023, 01/30/2023, Additional history exists RSV Immunization Adult Patients (1 - 1-dose 75+ series) 2028 Influenza Vaccine Completed 12/07/2024, , 12/15/2022, Additional history exists HIB Vaccines Aged Out [...] on patient's age to complete this topic Insurance MEDICARE [facility] Care Teams Licensed Home Inspector Relationship Specialty Start Date End Date Ayan Tse MD [address] [place] [address] [place] PCP - General Internal Medicine 01/16/24
== END 2025-03-01 09:11 | disposition home or self-care (01) ==
LOC: HO.HOS 08:35
PROVIDERS: PCP Internal Medicine; Visit Provider Physical Medicine & Rehabilitation
DX: M47.812 Spondylosis without myelopathy or radiculopathy, cervical region (principal); R42 Dizziness and giddiness
CPT/HCPCS: 99213

== ENCOUNTER → 2025-03-01 08:35 | Outpatient (BNVA) | payer MEDICARE, OTHER, SELFPAY | PROVIDERS: PCP Internal Medicine; Visit Provider Physical Medicine & Rehabilitation | DX: M47.812 Spondylosis without myelopathy or radiculopathy, cervical region (principal); R42 Dizziness and giddiness; Z79.82 Long term (current) use of aspirin | CPT/HCPCS: 99212 ==